=== PATIENT | female | born 1960 | race Caucasian/White ===

== ENCOUNTER 2023-10-30 14:13 | Outpatient (CLI) | payer BC, SELFPAY ==
[2023-10-30 10:50] LABS: HCT 40.5 % (36.0-46.0); HGB 13.1 g/dL (11.2-15.7); MCHC 32.3 % (32.0-36.0); MCV 96 fL (80-95); MPV 8.3 fL (8.0-11.0); Platelet Count 229 10^3/uL (130-400); RBC 4.23 10^6/uL (3.93-5.22); RDW 13.2 % (11.7-14.6); RDW-SD 46.6 fL; WBC 3.27 10^3/uL (4.4-10.8)
[2023-10-30 11:48] LABS: ALT 21 U/L (14-59); AST 18 U/L (15-37); Albumin 3.8 g/dL (3.4-5.0); Alkaline Phosphatase 74 U/L (46-116); Anion Gap 7.5 mmol/L (3-11); BUN 23 mg/dL (7-18); Bilirubin, Total 0.57 mg/dL (0.2-1.0); CO2 29.5 mmol/L (21.0-32.0); CREATININE 0.8 mg/dL (0.55-1.02); Calcium 9.2 mg/dL (8.5-10.1); Chloride 101 mmol/L (98-107); Estimated GFR 83.26 (mL/min/1.73m2); Glucose 96 mg/dL (74-106); Potassium 4.4 mmol/L (3.5-5.1); Sodium 138 mmol/L (136-145)
== END 2023-10-30 14:14 | disposition home or self-care (01) ==
LOC: LBO 14:14
PROVIDERS: PCP Family Medicine; Visit Provider Family Medicine
DX: R53.83 Other fatigue (principal)
CPT/HCPCS: 36415; 80053; 85027; 84443

== ENCOUNTER 2023-11-19 01:15 | Outpatient (CLI) | payer BC, SELFPAY ==
--- NOTE | 2023-11-19 07:45 | DI.RAD_ITS ---
Exam(s) XR FOOT LT COMPLETE EXAM: XR FOOT LT COMPLETE CLINICAL HISTORY: Left foot pain,m79.672. TECHNIQUE: 2D digital imaging was performed. Three views. COMPARISON: No exams were available for comparison FINDINGS: BONES: No acute fracture is present. No bony destructive lesion is seen. JOINTS: No dislocation present. 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 No significant hallux valgus. No significant degenerative changes elsewhere. Plantar arch is maint ained. SOFT TISSUE: Normal. 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 DATA REPOSITORY: RADIATION DOSE DELIVERED:
== END 2023-11-19 01:35 ==
LOC: DI 01:16
PROVIDERS: PCP Family Medicine; Visit Provider Podiatrist
DX: M79.672 Pain in left foot (principal)
CPT/HCPCS: 73630

== ENCOUNTER 2024-05-27 12:26 | Outpatient (REF) | payer BC, SELFPAY ==
[2024-05-27 14:59] LABS: TSH (W/Ref FT4) 2.35 uIU/mL (0.36-3.74)
[2024-05-27 22:31] LABS: T3,Free 4.7 pg/mL (2.8-5.3)
== END 2024-05-27 12:27 | disposition home or self-care (01) ==
LOC: NCHCN 12:26
PROVIDERS: PCP Family Medicine; Visit Provider Family Medicine
DX: E03.9 Hypothyroidism, unspecified (principal)
CPT/HCPCS: 84443; 84481

== ENCOUNTER 2024-08-14 15:57 | Outpatient (REF) | payer BC, SELFPAY ==
[2024-08-14 21:19] LABS: Anion Gap 9.1 mmol/L (3-11); BUN 17 mg/dL (7-18); CO2 28.9 mmol/L (21.0-32.0); Calcium 9.7 mg/dL (8.5-10.1); Calculated LDL 149 mg/dL (<100); Chloride 103 mmol/L (98-107); Cholesterol 231 mg/dL (<200); Estimated GFR 97.12 (mL/min/1.73m2); Glucose 127 mg/dL (74-106); HDL Cholesterol 60 mg/dL (>or=50); Potassium 4.2 mmol/L (3.5-5.1); Sodium 141 mmol/L (136-145); Triglyceride 112 mg/dL (<150); Vitamin D 25 Total 56 ng/mL (30-100)
== END 2024-08-14 15:58 | disposition home or self-care (01) ==
LOC: NCHCN 15:57
PROVIDERS: PCP Family Medicine; Visit Provider Family Medicine
DX: E55.9 Vitamin D deficiency, unspecified (principal); E78.5 Hyperlipidemia, unspecified; E66.3 Overweight
CPT/HCPCS: 80048; 80061; 82306